=== PATIENT | female | born 1950 | race Caucasian/White ===

== ENCOUNTER → 2016-12-25 | Outpatient (CLI) | payer MEDICARE, MEDICAID ==
--- NOTE | 2016-12-25 16:01 | CT ---
EXAMINATION: Non contrast CT head. Coronal and sagittal reformats. 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 Otherwise No evidence of intra or extra axial hemorrhage, mass, midline shift, hydrocephalus or edema. The later al ventricles are mildly prominent, however symmetric and stable. Mild periventricular white matter hypodensities are noted. No hypoattenuation changes in the major vascular territories to suggest acute infarct. No abnormal intracranial calcifications are detected. No evidence of substantial vascular calcifications. Para nasal sinuses and mastoid air cells are well aerated without substantial findings. Pituitary fossa appears unremarkable. The calvarium is intact. No evidence of skull fracture. Degenerative changes are noted within the temporomandibular joints bilaterally. IMPRESSION: 1. 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 2. Mild small vessel ischemic changes. 3. No acute intracranial findings.
== END ==
LOC: MW.DI 12:52
PROVIDERS: ATTEND Psychiatry & Neurology Neuromuscular Medicine
DX: Q04.6 Congenital cerebral cysts (principal)
CPT/HCPCS: 70450; 70450-26

== ENCOUNTER → 2017-01-10 | Outpatient (CLI) | payer MEDICARE, MEDICAID | LOC: MW.CHNEURO 08:00 | PROVIDERS: ATTEND Psychiatry & Neurology Neuromuscular Medicine | DX: G56.03 Carpal tunnel syndrome, bilateral upper limbs (principal); Q04.6 Congenital cerebral cysts | CPT/HCPCS: 99214 ==

== ENCOUNTER 2017-05-22 17:50 | Emergency (ER) | payer MEDICARE, MEDICAID ==
--- NOTE | 2017-05-22 19:27 | EDM.PDOC ---
ED HPI GENERAL MEDICAL PROBLEM - General Chief Complaint: Abdominal Pain Stated Complaint: LEFT SIDE ABDOMINAL AND LOWER BACK PAIN Time Seen by Provider: 05/22/17 19:05 Source of Information: Reports: Patient History Limitations: Reports: No Limitations - History of Present Illness INITIAL COMMENTS - FREE TEXT/NARRATIVE: HISTORY AND PHYSICAL: History of present illness: [Patient comes to the emergency room complaining of left flank pain. Started around noon today while she was eating lunch. Was more intense through the early afternoon and it has gradually improved as the day has gone on. The pain is not constant but comes and goes. Her last bowel movement was this morning and was normal. She's not had any burning with urination or change in her urinary habits. No diarrhea. No change in her appetite. No history of acid reflux. No radiation of pain to any other area of her body. She has had no nausea or vomiting. No fever or chills. Denies any recent illness and infection. ] Review of systems: As per history of present illness and below otherwise all systems reviewed and negative. Past medical history: As per history of present illness and as reviewed below otherwise noncontributory. Surgical history: As per history of present illness and as reviewed below otherwise noncontributory. Social history: No reported history of drug or alcohol abuse. Family history: As per history of present illness and as reviewed below otherwise noncontributory. Physical exam: Gen.: Well-developed well-nourished female in no acute distress. HEENT: Atraumatic, normocephalic. Oral mucous membranes are pink and moist. Neck is supple, no lymphadenopathy. Lungs: Clear to auscultation, breath sounds equal bilaterally. Heart: S1S2, regular rate and rhythm. Abdomen: Bowel sounds are normoactive throughout. Abdomen is soft nondistended and nontender. She is mildly tender with percussion over her left flank area. Pelvis: Stable nontender. Genitourinary: Deferred. Rectal: Deferred. Extremities: Atraumatic, negative for cords or calf pain. No cyanosis or edema to feet or lower legs. Neurovascular unremarkable. Neuro: Awake, alert, oriented. Motor and sensory unremarkable throughout. Exam nonfocal. Diagnostics: [CBC, CMP, UA, amylase, lipase, CT abd and pelvis w/o contrast] Impression: [abdominal pain] Plan: [Discussed with patient the etiology for her abdominal pain is unclear. We reviewed that her labs are completely normal and her CT shows no abnormalities. Recommend clear liquids for the rest of today as this could be viral in nature. Follow-up with her PCP in the next couple of days. Strict return precautions are reviewed with the patient. She verbalized understanding of today's discussion.] Definitive disposition and diagnosis as appropriate pending reevaluation and review of above. Abdominal/Left Flank Pain Score (Numeric/FACES): 7 - Related Data Allergies Allergy/AdvReac Type Severity Reaction Status Date / Time iodine Allergy Airway Verified 05/22/17 18:26 Tightness Sulfa (Sulfonamide Allergy unknown Verified 05/22/17 18:26 Antibiotics) Thiazides Allergy Airway Verified 05/22/17 18:26 Tightness Home Meds: Home Meds Acetaminophen [Tylenol] 2 tab PO ASDIRECTED PRN 02/04/15 [History] Ondansetron [Zofran] 4 tab PO ASDIRECTED PRN 02/04/15 [History] Past Medical History - Past Health History Medical/Surgical History: Denies Medical/Surgical History HEENT History: Reports: Other (See Below) Other HEENT History: wears bryan hearing aids and glasses Cardiovascular History: Reports: None Respiratory History: Reports: None Gastrointestinal History: Reports: None Genitourinary History: Reports: None 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 Musculoskeletal History: Reports: None Neurological History: Reports: None Psychiatric History: Reports: None Endocrine/Metabolic History: Reports: None Hematologic History: Reports: None Immunologic History: Reports: None Oncologic (Cancer) History: Reports: None Dermatologic History: Reports: None - Infectious Disease History Infectious Disease History: Reports: None - Past Surgical History HEENT Surgical History: Reports: None, Other (See Below) Other HEENT Surgeries/Procedures: hx palatoplasty for cleft palate Cardiovascular Surgical History: Reports: None Respiratory Surgical History: Reports: None GI Surgical History: Reports: None Endocrine Surgical History: Reports: None Neurological Surgical History: Reports: None Musculoskeletal Surgical History: Reports: None Dermatological Surgical History: Reports: None Social & Family History - Family History Family Medical History: Noncontributory - Tobacco Use Smoking Status *Q: Never Smoker Second Hand Smoke Exposure: No - Caffeine Use Caffeine Use: Reports: None - Alcohol Use Days Per Week of Alcohol Use: 0 - Recreational Drug Use Recreational Drug Use: No Drug Use in Last 12 Months: No ED ROS GENERAL - Review of Systems Review Of Systems: ROS reveals no pertinent complaints other than HPI. ED EXAM, GI/ABD - Physical Exam Exam: See Below Course - Vital Signs Last Recorded V/S: Last Vital Signs Temp 97.2 F 05/22/17 22:26 Pulse 87 05/22/17 22:26 Resp 18 05/22/17 22:26 BP 162/90 H 05/22/17 22:26 Pulse Ox 96 05/22/17 22:26 - Orders/Labs/Meds Labs: Laboratory Tests 05/22/17 05/22/17 05/22/17 Range/Units 19:12 19:20 19:20 WBC 12.55 H (4.0-11.0) K/uL RBC 5.39 (4.30-5.90) M/uL Hgb 15.0 (12.0-16.0) g/dL Hct 45.2 (36.0-46.0) % MCV 83.9 (80.0-98.0) fL MCH 27.8 (27.0-32.0) pg MCHC 33.2 (31.0-37.0) g/dL RDW Std Deviation 43.2 (28.0-62.0) fl RDW Coeff of Zenaida 14 (11.0-15.0) % Plt Count 280 (150-400) K/uL MPV 10.30 (7.40-12.00) fL Neut % (Auto) 62.6 (48.0-80.0) % Lymph % (Auto) 29.1 (16.0-40.0) % Castro % (Auto) 6.1 (0.0-15.0) % Eos % (Auto) 1.7 (0.0-7.0) % Baso % (Auto) 0.5 (0.0-1.5) % Neut # (Auto) 7.9 H (1.4-5.7) K/uL Lymph # (Auto) 3.7 H (0.6-2.4) K/uL Castro # (Auto) 0.8 (0.0-0.8) K/uL Eos # (Auto) 0.2 (0.0-0.7) K/uL Baso # (Auto) 0.1 (0.0-0.1) K/uL Nucleated RBC % 0.0 /100WBC Nucleated RBCs # 0 K/uL Sodium 145 (136-146) mmol/L Potassium 3.9 (3.5-5.1) mmol/L Chloride 106 (98-110) mmol/L Carbon Dioxide 28 (21-31) mmol/L BUN 11 (6.0-23.0) mg/dL Creatinine 0.9 (0.6-1.5) mg/dL Est Cr Clr Drug Dosing 56.88 mL/min Estimated GFR (MDRD) > 60.0 ml/min Glucose 97 (60-110) mg/dL Calcium 9.9 (8.8-10.8) mg/dL Total Bilirubin 0.4 (0.1-1.5) mg/dL AST 25 (5-40) IU/L ALT 20 (8-54) IU/L Alkaline Phosphatase 114 (40-150) Total Protein 8.3 H (6.0-8.0) g/dL Albumin 4.7 (3.4-4.8) g/dL Globulin 3.6 H (2.0-3.5) g/dL Albumin/Globulin Ratio 1.3 (1.3-2.8) Amylase 44 (10-90) U/L Lipase (7-80) U/L Urine Color YELLOW Urine Appearance CLEAR Urine pH 5.5 (5.0-8.0) Ur Specific [place] 1.010 (1.001-1.035) Urine Protein NEGATIVE (NEGATIVE) mg/dL Urine Glucose (UA) NEGATIVE (NEGATIVE) mg/dL Urine Ketones NEGATIVE (NEGATIVE) mg/dL Urine Occult Blood TRACE-INTACT (NEGATIVE) Urine Nitrite NEGATIVE (NEGATIVE) Urine Bilirubin NEGATIVE (NEGATIVE) Urine Urobilinogen 0.2 (<2.0) EU/dL Ur Leukocyte Esterase NEGATIVE (NEGATIVE) Urine RBC 0-1 (0-2/HPF) Urine WBC 1-3 (0-5/HPF) Ur Epithelial Cells OCCASIONAL (NONE-FEW) Urine Bacteria FEW (NEGATIVE) 05/22/17 Range/Units 19:20 WBC (4.0-11.0) K/uL RBC (4.30-5.90) M/uL Hgb (12.0-16.0) g/dL Hct (36.0-46.0) % MCV (80.0-98.0) fL MCH (27.0-32.0) pg MCHC (31.0-37.0) g/dL RDW Std Deviation (28.0-62.0) fl RDW Coeff of Zenaida (11.0-15.0) % Plt Count (150-400) K/uL MPV (7.40-12.00) fL Neut % (Auto) (48.0-80.0) % Lymph % (Auto) (16.0-40.0) % Castro % (Auto) (0.0-15.0) % Eos % (Auto) (0.0-7.0) % Baso % (Auto) (0.0-1.5) % Neut # (Auto) (1.4-5.7) K/uL Lymph # (Auto) (0.6-2.4) K/uL Castro # (Auto) (0.0-0.8) K/uL Eos # (Auto) (0.0-0.7) K/uL Baso # (Auto) (0.0-0.1) K/uL Nucleated RBC % /100WBC Nucleated RBCs # K/uL Sodium (136-146) mmol/L Potassium (3.5-5.1) mmol/L Chloride (98-110) mmol/L Carbon Dioxide (21-31) mmol/L BUN (6.0-23.0) mg/dL Creatinine (0.6-1.5) mg/dL Est Cr Clr Drug Dosing mL/min Estimated GFR (MDRD) ml/min Glucose (60-110) mg/dL Calcium (8.8-10.8) mg/dL Total Bilirubin (0.1-1.5) mg/dL AST (5-40) IU/L ALT (8-54) IU/L Alkaline Phosphatase (40-150) Total Protein (6.0-8.0) g/dL Albumin (3.4-4.8) g/dL Globulin (2.0-3.5) g/dL Albumin/Globulin Ratio (1.3-2.8) Amylase (10-90) U/L Lipase 26 (7-80) U/L Urine Color Urine Appearance Urine pH (5.0-8.0) Ur Specific [place] (1.001-1.035) Urine Protein (NEGATIVE) mg/dL Urine Glucose (UA) (NEGATIVE) mg/dL Urine Ketones (NEGATIVE) mg/dL Urine Occult Blood (NEGATIVE) Urine Nitrite (NEGATIVE) Urine Bilirubin (NEGATIVE) Urine Urobilinogen (<2.0) EU/dL Ur Leukocyte Esterase (NEGATIVE) Urine RBC (0-2/HPF) Urine WBC (0-5/HPF) Ur Epithelial Cells (NONE-FEW) Urine Bacteria (NEGATIVE) Departure - Departure Time of Disposition: 22:15 Disposition: Home, Self-Care 01 Condition: Good Clinical Impression: Abdominal pain - Discharge Information Instructions: Abdominal Pain, Adult, [id number] Referrals: Ameena Montesinos NP [Primary Care Provider] - Forms: ED Department Discharge Additional Instructions: The following information is given to patients seen in the emergency department who are being discharged to home. This information is to outline your options for follow-up care. We provide all patients seen in our emergency department with a follow-up referral. The need for follow-up, as well as the timing and circumstances, are variable depending upon the specifics of your emergency department visit. If you don't have a primary care physician on staff, we will provide you with a referral. We always advise you to contact your personal physician following an emergency department visit to inform them of the circumstance of the visit and for follow-up with them and/or the need for any referrals to a consulting specialist. The emergency department will also refer you to a specialist when appropriate. This referral assures that you have the opportunity for follow-up care with a specialist. All of these measure are taken in an effort to provide you with optimal care, which includes your follow-up. Under all circumstances we always encourage you to contact your private physician who remains a resource for coordinating your care. When calling for follow-up care, please make the office aware that this follow-up is from your recent emergency room visit. If for any reason you are refused follow-up, please contact the [facility] emergency department at and asked to speak to the emergency department charge nurse. [address] [id number] Follow-up with your primary care provider later this week. Push fluids. Return to ER as needed as discussed.
[2017-05-22 19:52] LABS: CHLORIDE,CL 106 mmol/L (98-110); SODIUM,NA 145 mmol/L (136-146)
[2017-05-22 22:33] VITALS: BP 162/90
--- NOTE | 2017-05-23 10:23 | CT ---
EXAM DATE: 05/22/17 PATIENT'S AGE: 66 Patient: KELVIN TORRE Facility: [place], [place] Site . Site : 1950 Study: CT Abdomen/Pelvis [id number]/26/2017 9:29:32 PM Ordering Physician: Doctor Boles Final Report: INDICATION: LLQ ABDOMINAL PAIN X [address] ABDOMEN AND PELVIS WITHOUT CONTRAST TECHNIQUE: Multidetector CT imaging was performed through the abdomen and pelvis without intravenous contrast administration. Coronal and sagittal reconstructions were generated. COMPARISON: 11/14/2014 CT abdomen and pelvis. FINDINGS: Lower chest: Lung bases are clear. Liver: Within normal limits. Gallbladder and bile ducts: No gallbladder wall thickening or calcified gallstones. No biliary dilation identified. Pancreas: Unremarkable. Spleen: Normal. Adrenals: No nodules or masses. Kidneys, ureters, and urinary bladder: No urinary tract stones identified. Unchanged small parapelvic cysts in the lower pole of the left kidney. No solid renal masses or hydronephrosis. No bladder mass or definite wall thickening. Gastrointestinal tract: Normal caliber bowel without wall thickening. Appendix not identified. Vascular structures: Normal caliber abdominal aorta with mild atherosclerotic calcifications. Peritoneum: No free air, abscess, or significant free fluid. Lymph nodes: No pathologically enlarged nodes identified. Reproductive organs: No pelvic masses. Bones: Mild spinal degenerative changes. IMPRESSION: 1. No acute abnormality identified. No cause for the patient`s symptoms is evident. 2. Nonacute findings as detailed above. RADHA OLSON MD [employer] Dictated by Roger Olson MD @ 05/22/2017 10:09:13 PM Dictated by: Roger Olson MD @ 05/22/2017 22:09:34 (Electronic Signature) Report Signed by Proxy. [facility]ITAL[facility]hyllis
== END 2017-05-22 22:28 | disposition home or self-care (01) ==
LOC: MW.ED 17:50
DX: R10.9 Unspecified abdominal pain (principal); Z88.2 Allergy status to sulfonamides; Z88.8 Allergy status to other drugs, medicaments and biological substances; Z98.890 Other specified postprocedural states
CPT/HCPCS: 36415; 74176; 74176-26; 80053; 81001; 82150; 83690; 85025; 99283; 99284-25

== ENCOUNTER 2019-08-13 10:36 | Emergency (ER) | payer MEDICARE, MEDICAID ==
--- NOTE | 2019-08-13 11:13 | EDM.PDOC ---
ED HPI GENERAL MEDICAL PROBLEM - General Chief Complaint: ENT Problem Stated Complaint: LEFT SIDE JAW SWOLLEN Time Seen by Provider: 08/13/19 11:13 Source of Information: Reports: Patient - History of Present Illness INITIAL COMMENTS - FREE TEXT/NARRATIVE: HISTORY AND PHYSICAL: History of present illness: [patient presenst with jaw swelling on the right poor dentition in general, teeth are permanent, no denture] no f/n/v/c/s/no muffled voice, drooling or trismus Review of systems: As per history of present illness and below otherwise all systems reviewed and negative. Past medical history: As per history of present illness and as reviewed below otherwise noncontributory. Surgical history: As per history of present illness and as reviewed below otherwise noncontributory. Social history: No reported history of drug or alcohol abuse. Family history: As per history of present illness and as reviewed below otherwise noncontributory. Physical exam: HEENT: Atraumatic, normocephalic, pupils reactive, negative for conjunctival pallor or scleral icterus, mucous membranes moist, throat clear, neck supple, nontender, trachea midline. swelling and tenderness on right upper jaw line Lungs: Clear to auscultation, breath sounds equal bilaterally, chest nontender. Heart: S1S2, regular, negative for clicks, rubs, or JVD. Abdomen: Soft, nondistended, nontender. Negative for masses or hepatosplenomegaly. Negative for costovertebral tenderness. Pelvis: Stable nontender. Genitourinary: Deferred. Rectal: Deferred. Extremities: Atraumatic, negative for cords or calf pain. Neurovascular unremarkable. Neuro: Awake, alert, oriented. Cranial nerves II through XII unremarkable. Cerebellum unremarkable. Motor and sensory unremarkable throughout. Exam nonfocal. Diagnostics: [clinical ] Therapeutics: [amoxil dental balls cataflem ] Impression: [dental pain early dental abcess formation clinically] Definitive disposition and diagnosis as appropriate pending reevaluation and review of above. RU teeth Pain Score (Numeric/FACES): 3 - Related Data Allergies Allergy/AdvReac Type Severity Reaction Status Date / Time iodine Allergy Airway Verified 08/13/19 11:06 Tightness Sulfa (Sulfonamide Allergy unknown Verified 08/13/19 11:06 Antibiotics) Thiazides Allergy Airway Verified 08/13/19 11:06 Tightness Home Meds: Home Meds Acetaminophen [Tylenol] 2 tab PO ASDIRECTED PRN 02/04/15 [History] Ondansetron [Zofran] 4 tab PO ASDIRECTED PRN 02/04/15 [History] Past Medical History - Past Health History Medical/Surgical History: Denies Medical/Surgical History HEENT History: Reports: Other (See Below) Other HEENT History: wears bryan hearing aids and glasses Cardiovascular History: Reports: None Respiratory History: Reports: None Gastrointestinal History: Reports: None Genitourinary History: Reports: None 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 Musculoskeletal History: Reports: None Neurological History: Reports: None Psychiatric History: Reports: None Endocrine/Metabolic History: Reports: None Hematologic History: Reports: None Immunologic History: Reports: None Oncologic (Cancer) History: Reports: None Dermatologic History: Reports: None - Infectious Disease History Infectious Disease History: Reports: Chicken Pox, Measles, Mumps - Past Surgical History HEENT Surgical History: Reports: None, Other (See Below) Other HEENT Surgeries/Procedures: hx palatoplasty for cleft palate Cardiovascular Surgical History: Reports: None Respiratory Surgical History: Reports: None GI Surgical History: Reports: None Endocrine Surgical History: Reports: None Neurological Surgical History: Reports: None Musculoskeletal Surgical History: Reports: None Dermatological Surgical History: Reports: None Social & Family History - Family History Family Medical History: Noncontributory - Tobacco Use Smoking Status *Q: Never Smoker Second Hand Smoke Exposure: No - Caffeine Use Caffeine Use: Reports: None - Recreational Drug Use Recreational Drug Use: No ED ROS GENERAL - Review of Systems Review Of Systems: See Below ED EXAM, GENERAL - Physical Exam Exam: See Below Course - Vital Signs Last Recorded V/S: Last Vital Signs Temp 98.2 F 08/13/19 11:07 Pulse 71 08/13/19 11:07 Resp 16 08/13/19 11:07 BP 159/73 H 08/13/19 11:07 Pulse Ox 96 08/13/19 11:07 Departure - Departure Time of Disposition: 11:25 Disposition: Home, Self-Care 01 Condition: Good Clinical Impression: Dental abscess, Dental caries - Discharge Information Referrals: Eladia Morgan MD [Primary Care Provider] - Forms: ED Department Discharge Additional Instructions: medication as prescribed return if persist or worsen f/u dentist lili The following information is given to patients seen in the emergency department who are being discharged to home. This information is to outline your options for follow-up care. We provide all patients seen in our emergency department with a follow-up referral. The need for follow-up, as well as the timing and circumstances, are variable depending upon the specifics of your emergency department visit. If you don't have a primary care physician on staff, we will provide you with a referral. We always advise you to contact your personal physician following an emergency department visit to inform them of the circumstance of the visit and for follow-up with them and/or the need for any referrals to a consulting specialist. The emergency department will also refer you to a specialist when appropriate. This referral assures that you have the opportunity for follow-up care with a specialist. All of these measure are taken in an effort to provide you with optimal care, which includes your follow-up. Under all circumstances we always encourage you to contact your private physician who remains a resource for coordinating your care. When calling for follow-up care, please make the office aware that this follow-up is from your recent emergency room visit. If for any reason you are refused follow-up, please contact the [facility] emergency department at and asked to speak to the emergency department charge nurse. Sepsis Event Note - Evaluation Sepsis Screening Result: No Definite Risk - Focused Exam Vital Signs: Vital Signs Temp Pulse Resp BP Pulse Ox 08/13/19 11:07 98.2 F 71 16 159/73 H 96 Date Exam was Performed: 08/13/19 Time Exam was Performed: 11:23
[2019-08-13 11:59] VITALS: BP 141/78; PULSE 68
== END 2019-08-13 11:37 | disposition home or self-care (01) ==
LOC: MW.ED 10:36
DX: K04.7 Periapical abscess without sinus (principal); K02.9 Dental caries, unspecified; Z88.2 Allergy status to sulfonamides; Z88.8 Allergy status to other drugs, medicaments and biological substances
CPT/HCPCS: 99283

== ENCOUNTER 2020-06-13 21:04 | Emergency (ER) | payer MEDICARE, MEDICAID ==
[2020-06-13 21:26] VITALS: BP 174/150; PULSE 95
[2020-06-13] MEDS ORDERED: Sodium Chloride 0.9% 2.5 ML Syringe FLUSH PRN (21:31)
[2020-06-13] MEDS ORDERED: Sodium Chloride 0.9% 10 ML Syringe FLUSH PRN (21:31)
--- NOTE | 2020-06-13 21:49 | EDM.PDOC ---
<Gustavo Gillespie - Last Filed: 06/13/20 22:27> ED HPI GENERAL MEDICAL PROBLEM - General Chief Complaint: Flank Pain Stated Complaint: RT SIDE PAIN Time Seen by Provider: 06/13/20 21:49 - History of Present Illness INITIAL COMMENTS - FREE TEXT/NARRATIVE: Patient was signed out to me by JOSIE Mena pending CMP at 7PM I did reevaluate the patient and patient stated that her flank pain has improved since Lidoderm patch application. Patient states that she overall feels well. My time of reevaluation the patient had normal vital signs. Labs reviewed which did show a normal CBC and normal CMP with a negative urinalysis After CMP I did reevaluate the patient she stated that she continued to feel better. I did discuss with her at this time that I do believe is secondary to musculoskeletal strain. She was provided with treatment modalities and was amenable to discharge at this time. She is to return for any new or worsening symptoms DISPOSITION: The patient was discharged home in stable condition. The patient will follow up with primary care as needed CONDITION: Fair PROCEDURES: None FINAL IMPRESSION(S)/DIAGNOSES: 1. Acute right back musculoskeletal strain Gustavo Gillespie M.D. - Related Data Allergies Allergy/AdvReac Type Severity Reaction Status Date / Time iodine Allergy Airway Verified 06/13/20 21:26 Tightness Sulfa (Sulfonamide Allergy unknown Verified 06/13/20 21:26 Antibiotics) Thiazides Allergy Airway Verified 06/13/20 21:26 Tightness Home Meds: Home Meds Acetaminophen [Tylenol] 2 tab PO ASDIRECTED PRN 02/04/15 [History] Departure - Departure Time of Disposition: 22:28 Disposition: Home, Self-Care 01 Condition: Fair Clinical Impression: Back pain Qualifiers: Back pain location: low back pain Chronicity: acute Back pain laterality: right Sciatica presence: without sciatica Qualified Code(s): M54.5 - Low back pain - Discharge Information *PRESCRIPTION DRUG MONITORING PROGRAM REVIEWED*: No *COPY OF PRESCRIPTION DRUG MONITORING REPORT IN PATIENT JEAN: No Instructions: Acute Back Pain, Adult Referrals: Sammi Cortez AGILITY INSTRUCTOR [Primary Care Provider] - Forms: ED Department Discharge Additional Instructions: The following information is given to patients seen in the emergency department who are being discharged to home. This information is to outline your options for follow-up care. We provide all patients seen in our emergency department with a follow-up referral. The need for follow-up, as well as the timing and circumstances, are variable depending upon the specifics of your emergency department visit. If you don't have a primary care physician on staff, we will provide you with a referral. We always advise you to contact your personal physician following an emergency department visit to inform them of the circumstance of the visit and for follow-up with them and/or the need for any referrals to a consulting specialist. The emergency department will also refer you to a specialist when appropriate. This referral assures that you have the opportunity for follow-up care with a specialist. All of these measure are taken in an effort to provide you with optimal care, which includes your follow-up. Under all circumstances we always encourage you to contact your private physician who remains a resource for coordinating your care. When calling for follow-up care, please make the office aware that this follow-up is from your recent emergency room visit. If for any reason you are refused follow-up, please contact the [facility] Emergency Department at and asked to speak to the emergency department charge nurse. [facility] [address] [place] [address] [address] Thank you for choosing the [facility] emergency department in [place] for your medical needs today. It was a pleasure caring for you. Today you were seen in the emergency department for back pain. 1. When resting please lay on a flat firm surface. Limit your immobility to prevent muscle stiffness. Get up to ambulate/move around/gentle stretching multiple times throughout the day. May alternate heat and ice to the painful areas 2. Tylenol and/or Ibuprofen as needed for back pain. 3. Please follow-up with your primary care provider as we discussed. Return to the ED as needed and as discussed. <Mandy Mena E - Last Filed: 10/19/20 10:04> ED HPI GENERAL MEDICAL PROBLEM - General Source of Information: Reports: Patient History Limitations: Reports: No Limitations - History of Present Illness INITIAL COMMENTS - FREE TEXT/NARRATIVE: HISTORY AND PHYSICAL: History of present illness: Patient is a 69-year-old female who presents to the emergency room with complaints of right back pain. She states at 8:30 PM this evening she was crocheting in her chair when she started to have a sharp spasming pain to her right back area (blew flank). Denies any injury, trauma or falls. Has not done any physical activity where she feels she could have pulled a muscle. Patient denies any fever, chills, headache, change in vision, syncope or near syncope. Denies any chest pain, back pain, shortness of breath or cough. Denies any abdominal pain, nausea, vomiting, diarrhea, constipation or dysuria. Has not noted any blood in urine or stool. Patient has been eating and drinking appropriately. Review of systems: As per history of present illness and below otherwise all systems reviewed and negative. Past medical history: As per history of present illness and as reviewed below otherwise noncontributory. Surgical history: As per history of present illness and as reviewed below otherwise noncontributory. Social history: See social history for further information Family history: As per history of present illness and as reviewed below otherwise noncontributory. Physical exam: General: Well developed and well nourished. Alert and orientated x 3. Nontoxic in appearance and in no acute distress. Vital signs are stable and have been reviewed by me. Nursing notes were reviewed. HEENT: Atraumatic, normocephalic, pupils equal and reactive bilaterally, negati ve for conjunctival pallor or scleral icterus, mucous membranes moist, trachea midline. No drooling or trismus noted. No meningeal signs. No hot potato voice noted. Lungs: Clear to auscultation, breath sounds equal bilaterally, chest nontender. Normal work of breathing, no accessory muscles used. Heart: S1S2, regular rate and rhythm without overt murmur Abdomen: Soft, nondistended, nontender. Negative for masses or hepatosplenomegaly. Negative for costovertebral tenderness. Skin: Intact, warm, dry. No lesions or rashes noted. C-spine/Back: No pinpoint vertebral tenderness upon palpation. No crepitus, step-offs or obvious deformities. Patient is ambulatory into the emergency room without difficulty or deficit. Able to rock back on heels and walk on toes. Denies any urinary or fecal incontinence. Denies any numbness, tingling or saddle paresthesia. No concerns of serious infection, fracture or cord compression, or cauda equina syndrome. Deep tendon reflexes brisk bilaterally. Hematologic: No petechiae or purpra. Mucosa appropriate color and normal nail bed color and refill. Extremities: Atraumatic, moves all extremities per self without difficulty or deficits, negative for cords or calf pain. Neurovascular unremarkable. Neuro: Awake, alert, oriented. Cranial nerves II through XII unremarkable. Cerebellum unremarkable. Motor and sensory unremarkable throughout. Exam nonfocal. Psychiatric: Mood and affect are appropriate. Normal thought process. Answering questions appropriately. Notes: Lab work is unremarkable. Patient's pain is localized below the flank area and states it comes and goes. There is no obvious rash which would be concerning for shingles. I have spoken with the patient/caregiver and discussed today's findings, in addition to providing specific details for plan of care. Reassessment at the time of disposition demonstrates that the patient is in no acute distress. The patient has remained stable throughout the entire ED visit and is without objective evidence for acute process requiring urgent intervention or hospitalization. The patient is stable for discharge, counseling was provided and we discussed in great detail signs and symptoms that would prompt them to return to the Emergency Department. Medication, follow up and supportive care measures were reviewed and discussed. Voices understanding and is agreeable to plan of care. Denies any further questions or concerns at this time. Diagnostics: CBC, CMP, UA Therapeutics: Lidoderm Prescription: None Impression: Back pain Plan: 1. When resting please lay on a flat firm surface. Limit your immobility to prevent muscle stiffness. Get up to ambulate/move around/gentle stretching multiple times throughout the day. May alternate heat and ice to the painful areas 2. Tylenol and/or Ibuprofen as needed for back pain. 3. Please follow-up with your primary care provider as we discussed. Return to the ED as needed and as discussed. Definitive disposition and diagnosis as appropriate pending reevaluation and review of above. Flank Pain Score (Numeric/FACES): 3 Past Medical History - Past Health History Medical/Surgical History: Denies Medical/Surgical History HEENT History: Reports: Other (See Below) Other HEENT History: wears bryan hearing aids and glasses Cardiovascular History: Reports: None Respiratory History: Reports: None Gastrointestinal History: Reports: None Genitourinary History: Reports: None PHOTO TECHNOLOGIST History: Reports: None Musculoskeletal History: Reports: None Neurological History: Reports: None Psychiatric History: Reports: None Endocrine/Metabolic History: Reports: None Hematologic History: Reports: None Immunologic History: Reports: None Oncologic (Cancer) History: Reports: None Dermatologic History: Reports: None - Infectious Disease History Infectious Disease History: Reports: Chicken Pox, Measles, Mumps - Past Surgical History HEENT Surgical History: Reports: None, Other (See Below) Other HEENT Surgeries/Procedures: hx palatoplasty for cleft palate Cardiovascular Surgical History: Reports: None Respiratory Surgical History: Reports: None GI Surgical History: Reports: None Endocrine Surgical History: Reports: None Neurological Surgical History: Reports: None Musculoskeletal Surgical History: Reports: None Dermatological Surgical History: Reports: None Social & Family History - Family History Family Medical History: Noncontributory - Tobacco Use Tobacco Use Status *Q: Never Tobacco User Second Hand Smoke Exposure: No - Caffeine Use Caffeine Use: Reports: Coffee - Recreational Drug Use Recreational Drug Use: No ED ROS GENERAL - Review of Systems Review Of Systems: Comprehensive ROS is negative, except as noted in HPI. ED EXAM, RENAL/ - Physical Exam Exam: See Below (See dictation) Course - Vital Signs Last Recorded V/S: Last Vital Signs Temp 97.6 F 06/13/20 21:23 Pulse 95 06/13/20 21:23 Resp 16 06/13/20 21:23 BP 174/150 H 06/13/20 21:23 Pulse Ox 98 06/13/20 21:23 - Orders/Labs/Meds Orders: Active Orders 24 hr Category Date Time Status Saline Lock Insert [OM.PC] Stat Oth 06/13/20 21:31 Ordered Labs: Laboratory Tests 06/13/20 06/13/20 06/13/20 Range/Units 21:20 21:46 21:46 WBC 8.01 (4.0-11.0) K/uL RBC 5.19 (4.30-5.90) M/uL Hgb 13.6 (12.0-16.0) g/dL Hct 43.5 (36.0-46.0) % MCV 83.8 (80.0-98.0) fL MCH 26.2 L (27.0-32.0) pg MCHC 31.3 (31.0-37.0) g/dL RDW Std Deviation 44.8 (28.0-62.0) fl RDW Coeff of Zenaida 15 (11.0-15.0) % Plt Count 262 (150-400) K/uL MPV 10.30 (7.40-12.00) fL Neut % (Auto) 47.0 L (48.0-80.0) % Lymph % (Auto) 43.3 H (16.0-40.0) % [place] % (Auto) 7.1 (0.0-15.0) % Eos % (Auto) 2.1 (0.0-7.0) % Baso % (Auto) 0.5 (0.0-1.5) % Neut # (Auto) 3.8 (1.4-5.7) K/uL Lymph # (Auto) 3.5 H (0.6-2.4) K/uL [place] # (Auto) 0.6 (0.0-0.8) K/uL Eos # (Auto) 0.2 (0.0-0.7) K/uL Baso # (Auto) 0.0 (0.0-0.1) K/uL Nucleated RBC % 0.0 /100WBC Nucleated RBCs # 0 K/uL Sodium 141 (136-145) mmol/L Potassium 3.6 (3.5-5.1) mmol/L Chloride 103 (98-107) mmol/L Carbon Dioxide 28.8 (21.0-32.0) mmol/L BUN 12 (7.0-18.0) mg/dL Creatinine 0.9 (0.6-1.0) mg/dL Est Cr Clr Drug Dosing 41.78 mL/min Estimated GFR (MDRD) > 60.0 ml/min Glucose 133 H (74-106) mg/dL Calcium 9.0 (8.5-10.1) mg/dL Total Bilirubin 0.3 (0.2-1.0) mg/dL AST 23 (15-37) IU/L ALT 36 (14-63) IU/L Alkaline Phosphatase 113 (46-116) U/L Total Protein 7.7 (6.4-8.2) g/dL Albumin 4.3 (3.4-5.0) g/dL Globulin 3.4 (2.6-4.0) g/dL Albumin/Globulin Ratio 1.3 (0.9-1.6) Urine Color YELLOW Urine Appearance CLEAR Urine pH 5.5 (5.0-8.0) Ur Specific [place] 1.025 (1.001-1.035) Urine Protein NEGATIVE (NEGATIVE) mg/dL Urine Glucose (UA) NEGATIVE (NEGATIVE) mg/dL Urine Ketones NEGATIVE (NEGATIVE) mg/dL Urine Occult Blood NEGATIVE (NEGATIVE) Urine Nitrite NEGATIVE (NEGATIVE) Urine Bilirubin NEGATIVE (NEGATIVE) Urine Urobilinogen 0.2 (<2.0) EU/dL Ur Leukocyte Esterase NEGATIVE (NEGATIVE) Meds: Medications Discontinued Medications Generic Name Dose Route Start Last Admin Trade Name Freq PRN Reason Stop Dose Admin Lidocaine 700 mg 06/13/20 21:57 06/13/20 22:10 Lidoderm 5% TOP 06/13/20 21:58 700 mg ONETIME ONE Administration Sodium Chloride 10 ml 06/13/20 21:31 Saline Flush FLUSH ASDIRECTED PRN Keep Vein Open Sodium Chloride 2.5 ml 06/13/20 21:31 Saline Flush FLUSH ASDIRECTED PRN Keep Vein Open Sepsis Event Note (ED) - Evaluation Sepsis Screening Result: No Definite Risk - My Orders Last 24 Hours: My Active Orders 06/13/20 21:31 Saline Lock Insert [OM.PC] Stat - Assessment/Plan Last 24 Hours: My Active Orders 06/13/20 21:31 Saline Lock Insert [OM.PC] Stat
[2020-06-13] MEDS ORDERED: Lidocaine 5% 700 MG Patch TOP ONE (21:57)
[2020-06-13 22:16] LABS: BLOOD UREA NITROGEN,BUN 12 mg/dL (7.0-18.0); CARBON DIOXIDE,CO2 28.8 mmol/L (21.0-32.0); CHLORIDE,CL 103 mmol/L (98-107); GLUCOSE RANDOM 133 mg/dL (74-106); POTASSIUM,K 3.6 mmol/L (3.5-5.1); SODIUM,NA 141 mmol/L (136-145)
== END 2020-06-13 22:47 | disposition home or self-care (01) ==
LOC: MW.ED 21:04
DX: S39.012A Strain of muscle, fascia and tendon of lower back, initial encounter (principal); Z88.2 Allergy status to sulfonamides; Z88.8 Allergy status to other drugs, medicaments and biological substances; X58.XXXA Exposure to other specified factors, initial encounter
CPT/HCPCS: 36415; 80053; 81003; 85025; 99283; A9270

== ENCOUNTER 2020-08-16 10:41 | Emergency (ER) | payer MEDICARE, MEDICAID ==
[2020-08-16] MEDS ORDERED: Sodium Chloride 0.9% 10 ML Syringe FLUSH PRN (11:04)
[2020-08-16] MEDS ORDERED: Ondansetron 4 MG/2 ML SDV IVPUSH ONE (11:04)
[2020-08-16] MEDS ORDERED: Sodium Chloride 0.9% 2.5 ML Syringe FLUSH PRN (11:04)
[2020-08-16] MEDS ORDERED: Morphine 4 MG/ML Syringe IVPUSH ONE (11:04)
--- NOTE | 2020-08-16 11:09 | EDM.PDOC ---
ED HPI GENERAL MEDICAL PROBLEM - General Chief Complaint: Abdominal Pain Stated Complaint: REFERRED FOR CT SCAN Time Seen by Provider: 08/16/20 10:44 - History of Present Illness INITIAL COMMENTS - FREE TEXT/NARRATIVE: Patient is a 70-year-old female relatively well at baseline who is presenting with left lower quadrant pain. The patient notes on and off left lower quadrant pain for approximately 1 month but notes a significant worsening over the last week or so. No fevers no chills patient does have some associated yellow diarrhea that she is attributed to her medications. Patient rates the pain when she is sitting at near 0. However when she is moving or walking the pain increases to 5 out of 10. No nausea or vomiting she does have some burning epigastric discomfort that she attributes to her gastric reflux disease. No shortness of breath no other chest pain. Patient denies fevers dysuria or hematuria. Patient does have a history of remote right-sided appendectomy and right oophorectomy. left lower quadrant Pain Score (Numeric/FACES): 3 - Related Data Allergies Allergy/AdvReac Type Severity Reaction Status Date / Time iodine Allergy Airway Verified 08/16/20 11:25 Tightness Sulfa (Sulfonamide Allergy unknown Verified 08/16/20 11:25 Antibiotics) Thiazides Allergy Airway Verified 08/16/20 11:25 Tightness Home Meds: Home Meds Acetaminophen [Tylenol] 2 tab PO ASDIRECTED PRN 02/04/15 [History] Amoxicillin/Potassium Clav [Augmentin 875-125 Tablet] 1 each PO BID 7 Days #14 tablet 08/16/20 [Rx] Past Medical History - Past Health History Medical/Surgical History: Denies Medical/Surgical History HEENT History: Reports: Other (See Below) Other HEENT History: wears bryan hearing aids and glasses Cardiovascular History: Reports: None Respiratory History: Reports: None Gastrointestinal History: Reports: None Genitourinary History: Reports: None OBSTETRICS NURSE History: Reports: None Musculoskeletal History: Reports: None Neurological History: Reports: None Psychiatric History: Reports: None Endocrine/Metabolic History: Reports: None Hematologic History: Reports: None Immunologic History: Reports: None Oncologic (Cancer) History: Reports: None Dermatologic History: Reports: None - Infectious Disease History Infectious Disease History: Reports: Chicken Pox, Measles, Mumps - Past Surgical History HEENT Surgical History: Reports: None, Other (See Below) Other HEENT Surgeries/Procedures: hx palatoplasty for cleft palate Cardiovascular Surgical History: Reports: None Respiratory Surgical History: Reports: None GI Surgical History: Reports: None Endocrine Surgical History: Reports: None Neurological Surgical History: Reports: None Musculoskeletal Surgical History: Reports: None Dermatological Surgical History: Reports: None Social & Family History - Family History Family Medical History: No Pertinent Family History - Caffeine Use Caffeine Use: Reports: Coffee ED ROS GENERAL - Review of Systems Review Of Systems: See Below Free Text/Narrative/Comment: General: No fever. Skin: No rash. Eyes: No vision problems. ENT: No sore throat. Neck: No neck stiffness. Respiratory: No shortness of breath. Cardiac: No chest pain. Gastrointestinal: Per HPI Urinary: No dysuria. Musculoskeletal: No myalgias/arthralgias. Neurologic: No headache. ED EXAM, GENERAL - Physical Exam Exam: See Below Free Text/Narrative:: General Appearance: No acute distress, appears comfortable Skin: No rash HEENT: Normocephalic/atraumatic, sclera anicteric, mucous membranes moist Neck: Normal range of motion Chest and Lungs: Bilateral breath sounds, clear to auscultation Cardiovascular: Regular rate and rhythm, no murmur Abdomen: Soft, left upper and left lower quadrant tenderness without guarding or rebound Back: Normal Musculoskeletal: No edema or tenderness Neurologic: Awake, alert, no obvious deficits, moving all extremities Psychiatric: Appropriate, cooperative Course - Vital Signs Last Recorded V/S: Last Vital Signs Temp 97.2 F 08/16/20 10:53 Pulse 67 08/16/20 11:40 Resp 18 08/16/20 11:40 BP 157/77 H 08/16/20 11:40 Pulse Ox 97 08/16/20 11:40 - Orders/Labs/Meds Orders: Active Orders 24 hr Category Date Time Status Sodium Chloride 0.9% [Saline Flush] Med 08/16/20 11:04 Active 10 ml FLUSH ASDIRECTED PRN Sodium Chloride 0.9% [Saline Flush] Med 08/16/20 11:04 Active 2.5 ml FLUSH ASDIRECTED PRN Saline Lock Insert [OM.PC] Stat Oth 08/16/20 11:04 Ordered Medication Orders Sodium Chloride (Saline Flush) 10 ml FLUSH ASDIRECTED PRN PRN Reason: Keep Vein Open Last Admin: 08/16/20 11:18 Dose: 10 ml Documented by: BLAINE Sodium Chloride (Saline Flush) 2.5 ml FLUSH ASDIRECTED PRN PRN Reason: Keep Vein Open Last Admin: 08/16/20 11:18 Dose: 2.5 ml Documented by: BLAINE Labs: Laboratory Tests 08/16/20 08/16/20 Range/Units 11:15 11:15 WBC 6.84 (4.0-11.0) K/uL RBC 4.89 (4.30-5.90) M/uL Hgb 13.0 (12.0-16.0) g/dL Hct 41.4 (36.0-46.0) % MCV 84.7 (80.0-98.0) fL MCH 26.6 L (27.0-32.0) pg MCHC 31.4 (31.0-37.0) g/dL RDW Std Deviation 45.9 (28.0-62.0) fl RDW Coeff of Zenaida 15 (11.0-15.0) % Plt Count 249 (150-400) K/uL MPV 9.70 (7.40-12.00) fL Neut % (Auto) 62.4 (48.0-80.0) % Lymph % (Auto) 28.4 (16.0-40.0) % Barbour % (Auto) 7.3 (0.0-15.0) % Eos % (Auto) 1.6 (0.0-7.0) % Baso % (Auto) 0.3 (0.0-1.5) % Neut # (Auto) 4.3 (1.4-5.7) K/uL Lymph # (Auto) 1.9 (0.6-2.4) K/uL Barbour # (Auto) 0.5 (0.0-0.8) K/uL Eos # (Auto) 0.1 (0.0-0.7) K/uL Baso # (Auto) 0.0 (0.0-0.1) K/uL Nucleated RBC % 0.0 /100WBC Nucleated RBCs # 0 K/uL Sodium 146 H (136-145) mmol/L Potassium 3.3 L (3.5-5.1) mmol/L Chloride 106 (98-107) mmol/L Carbon Dioxide 29.3 (21.0-32.0) mmol/L BUN 11 (7.0-18.0) mg/dL Creatinine 0.8 (0.6-1.0) mg/dL Est Cr Clr Drug Dosing 46.33 mL/min Estimated GFR (MDRD) > 60.0 ml/min Glucose 96 (74-106) mg/dL Calcium 9.4 (8.5-10.1) mg/dL Total Bilirubin 0.5 (0.2-1.0) mg/dL AST 27 (15-37) IU/L ALT 33 (14-63) IU/L Alkaline Phosphatase 102 (46-116) U/L Total Protein 7.7 (6.4-8.2) g/dL Albumin 4.3 (3.4-5.0) g/dL Globulin 3.4 (2.6-4.0) g/dL Albumin/Globulin Ratio 1.3 (0.9-1.6) Lipase 85 (73-393) U/L Meds: Medications Generic Name Dose Route Start Last Admin Trade Name Freq PRN Reason Stop Dose Admin Sodium Chloride 10 ml 08/16/20 11:04 08/16/20 11:18 Saline Flush FLUSH 10 ml ASDIRECTED PRN Administration Keep Vein Open Sodium Chloride 2.5 ml 08/16/20 11:04 08/16/20 11:18 Saline Flush FLUSH 2.5 ml ASDIRECTED PRN Administration Keep Vein Open Discontinued Medications Generic Name Dose Route Start Last Admin Trade Name Freq PRN Reason Stop Dose Admin Morphine Sulfate 2 mg 08/16/20 11:04 08/16/20 11:18 Morphine IVPUSH 08/16/20 11:05 2 mg ONETIME ONE Administration Ondansetron HCl 4 mg 08/16/20 11:04 08/16/20 11:18 Zofran IVPUSH 08/16/20 11:05 4 mg ONETIME ONE Administration Departure - Departure Time of Disposition: 12:36 Disposition: Home, Self-Care 01 Condition: Good Clinical Impression: Diverticulitis - Discharge Information *PRESCRIPTION DRUG MONITORING PROGRAM REVIEWED*: Not Applicable *COPY OF PRESCRIPTION DRUG MONITORING REPORT IN PATIENT JEAN: Not Applicable Prescriptions: Amoxicillin/Potassium Clav [Augmentin 875-125 Tablet] 1 each PO BID 7 Days #14 tablet Instructions: Diverticulitis, [id number] Referrals: Anthony Sosa MD [Primary Care Provider] - (Please follow-up as soon as you can after the holidays) Forms: ED Department Discharge Additional Instructions: Please take the entire antibiotic prescription. If you develop a fever you start throwing up your pain worsens or you have any other new symptoms that concern you please call your doctor or return to the ER. The following information is given to patients seen in the emergency department who are being discharged to home. This information is to outline your options for follow-up care. We provide all patients seen in our emergency department with a follow-up referral. The need for follow-up, as well as the timing and circumstances, are variable depending upon the specifics of your emergency department visit. If you don't have a primary care physician on staff, we will provide you with a referral. We always advise you to contact your personal physician following an emergency department visit to inform them of the circumstance of the visit and for follow-up with them and/or the need for any referrals to a consulting specialist. The emergency department will also refer you to a specialist when appropriate. This referral assures that you have the opportunity for follow-up care with a specialist. All of these measure are taken in an effort to provide you with optimal care, which includes your follow-up. Under all circumstances we always encourage you to contact your private physician who remains a resource for coordinating your care. When calling for follow-up care, please make the office aware that this follow-up is from your recent emergency room visit. If for any reason you are refused follow-up, please contact the [facility] Emergency Department at and asked to speak to the emergency department charge nurse. Sepsis Event Note (ED) - Evaluation Sepsis Screening Result: No Definite Risk - Focused Exam Vital Signs: Vital Signs Temp Pulse Resp BP Pulse Ox 08/16/20 11:40 67 18 157/77 H 97 08/16/20 10:53 97.2 F 86 18 156/72 H 93 L - My Orders Last 24 Hours: My Active Orders 08/16/20 11:04 Sodium Chloride 0.9% [Saline Flush] 10 ml FLUSH ASDIRECTED PRN Sodium Chloride 0.9% [Saline Flush] 2.5 ml FLUSH ASDIRECTED PRN Saline Lock Insert [OM.PC] Stat - Assessment/Plan Last 24 Hours: My Active Orders 08/16/20 11:04 Sodium Chloride 0.9% [Saline Flush] 10 ml FLUSH ASDIRECTED PRN Sodium Chloride 0.9% [Saline Flush] 2.5 ml FLUSH ASDIRECTED PRN Saline Lock Insert [OM.PC] Stat Assessment:: 70-year-old female presenting with intermittent but consistently worsening left lower quadrant abdominal pain. Functional abdominal pain is a consideration diverticulitis is a consideration no risk factors for C. difficile and patient does not report frequent large-volume diarrhea. No fevers. UTI felt unlikely. Duration of symptoms with making renal colic far less likely. Patient became significantly more uncomfortable when moving about the examination bed for exam. Will give morphine and Zofran for symptoms CBC CMP and lipase and CT scan which will have to be without contrast due to her severe iodine allergy. A bdominal vascular pathology including dissection and aortic pathology as well as mesenteric ischemia all felt unlikely. 1240: On reassessment patient reports that her pain is "pretty good" at this t jamar. The patient's labs are good, she has a very minimal hypernatremia and hypokalemia likely 2/2 PO intake. They do not require repletion. Pt's CT shows diverticula in the LLQ. There is no signs of mary colonic inflammation. However, patient has low body fat and the scan had to be done w/out contrast due to her allergy. This lowers the sensitivity of the scan. Pt has focal tenderness and nonbloody diarrhea. The remainder of her scan is normal and without alternative explanation. Given this I think it prudent to treat with abx for potential diverticulitis. This line of reasoning was explained to the patient in full and she expressed understanding. We also discussed the need for follow-up with her primary care doctor as soon as she can after the holiday. We discussed that she needs to return for any new or worsening symptoms. Rx for Augmentin twice daily for 7 days sent to the patient's pharmacy.
[2020-08-16 11:55] LABS: BLOOD UREA NITROGEN,BUN 11 mg/dL (7.0-18.0); CARBON DIOXIDE,CO2 29.3 mmol/L (21.0-32.0); CHLORIDE,CL 106 mmol/L (98-107); GLUCOSE RANDOM 96 mg/dL (74-106); LIPASE 85 U/L (73-393); POTASSIUM,K 3.3 mmol/L (3.5-5.1); SODIUM,NA 146 mmol/L (136-145)
--- NOTE | 2020-08-16 12:23 | CT ---
Indication: Left lower quadrant pain and tenderness Technique: Volumetric multidetector CT images of the abdomen and pelvis were without the administration of intravenous contrast. Comparison: None available. Findings: The lung bases are clear. The liver is normal in attenuation without intrahepatic biliary ductal dilatation. The gallbladder is unremarkable without evidence of radiopaque calculus. There is no significant common biliary ductal dilatation or abrupt cut off. The spleen is normal in attenuation and size. The stomach and duodenum are grossly unremarkable. The pancreas is normal in attenuation without significant atrophy. The adrenal glands are unremarkable. There is no evidence of radiopaque calculus or hydronephrosis. There is a mild amount of stool seen throughout the colon. There is mild distal colonic diverticulosis. The appendix is not well seen. There is no significant mesenteric, retroperitoneal, or pelvic sidewall lymph nodes. The aorta is nonaneurysmal. There is no significant atherosclerotic disease appreciated. The solid pelvic viscera are grossly unremarkable. There is no free fluid or free air. The anterior abdominal wall is intact without significant hernias. The lumbar vertebral body heights are grossly maintained in satisfactory alignment without evidence of displaced fracture, lytic or blastic lesion. Impression: No evidence of radiopaque calculus or obstructive uropathy. [id number] stool appreciated throughout the colon without evidence of significant pericolonic inflammatory change. Please note that all CT scans at this facility use dose modulation, iterative reconstruction, and/or weight-based dosing when appropriate to reduce radiation dose to as low as reasonably achievable. Dictated by Ramo Gaston MD @ Aug 16 2020 12:14PM Signed by Dr. Ramo Gaston @ Aug 16 2020 12:21PM
[2020-08-16 13:16] VITALS: BP 157/74; PULSE 88
== END 2020-08-16 13:01 | disposition home or self-care (01) ==
LOC: MW.ED 10:41
DX: K57.32 Diverticulitis of large intestine without perforation or abscess without bleeding (principal); Z88.2 Allergy status to sulfonamides; Z88.8 Allergy status to other drugs, medicaments and biological substances
CPT/HCPCS: 36415; 74176; 80053; 83690; 85025; 96374; 96375; 99284; J2270; J2405